=== PATIENT | female | born 2000 | race Caucasian/White ===

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

== ENCOUNTER → 2021-06-07 09:54 | Outpatient (CLI) | payer OTHER, MEDICAID, SELFPAY ==
[2021-06-07 12:04] LABS: Hematocrit 42.8 % (37-47); Hemoglobin 13.8 g/dL (12.0-15.0); Mean Corp Hgb Conc 32.2 g/dL (32-36); Mean Corpuscular Hgb 28.8 pg (27.0-32.0); Mean Corpuscular Volume 89.4 fL (81-99); Mean Platelet Vol. 11.5 fl (6.2-12.0); Platelet Count 169 K/mm3 (150-450); RBC Distribution Width CV 12.9 % (11.6-14.6); RBC Distribution Width SD 42.5 fl (35.1-43.9); Red Blood Count 4.79 M/mm3 (4.2-5.4); White Blood Count 4.8 K/mm3 (4.4-11.0)
== END ==
PROVIDERS: PCP Pediatrics
DX: K62.5 Hemorrhage of anus and rectum (principal)
CPT/HCPCS: 36415; 85027

== ENCOUNTER → 2023-08-27 | Outpatient (CLI) | payer OTHER, SELFPAY ==
--- OUTSIDE RECORDS SUMMARY | 2023-08-27 11:42 | XMS RPT_ITS | CCD ---
Author Name Unknown Address [address] [place] [address] Organization [facility] Care Team Providers Care Manager Desktop Name Role Phone Unknown, Referring Provider Unavailable Unav ailable Unavailable Unavailable PHYSICIAN, NONE Primary Care Physician Unavailab Aamir Beckford Primary Care Provider [phone] STEPHANIE BINGHAM CNM Attending Unavailable STEPHANIE BINGHAM CNM Primary Care Unavailable STEPHANIE BINGHAM CNM Admitting Unavailable AAMIR AZEVEDO Primary Care Unavailable STEPHANIE BINGHAM Referring Unavailable MER BROWN Attending Unavailable Aamir Azevedo Primary Care Provider AAMIR AZEVEDO Primary Care Unavailable AAMIR AZEVEDO Primary Care Unavailable Allergies Allergy Classification Reported Allergen(s) Allergy Type Date of Onset Reaction(s) Facility (5 sources) Cephalexin; Translations: [Keflex] Drug Allergy 3 [facility]en[facility] Work Phone: (5 sources) Ciprofloxacin; Translations: [CIPROFLOXACIN] Drug Allergy 7 [facility] (1 source) Cephalosporins (Antibiotic); Translations: [CEPHALOSPORINS] Propensity to adverse reactions to drug (disorder) [facility] Repository (1 source) Cephalexin; Translations: [CEPHALEXIN] Drug Allergy 3 [facility] Repository Medications Current Medications Medication Drug Class(es) Dates Sig (Normalized) Sig (Original) amoxicillin 875 mg / clavulanate 125 mg oral tablet (2 sources) Penicillin-class Antibacterial Start: 02-04-2023 End: 02-11-2023 take 1 tablet by mouth twice daily amoxicillin-clav ulanic acid (AUGMENTIN) 875-125 mg per tablet Take 1 tablet by mouth twice daily for 7 days. 14 tablet 0 02/04/2023 02/11/2023 Active Completed/Discontinued Medications Medication Drug Class(es) Dates Sig (Normalized) Sig (Original) cephalexin 500 mg oral capsule (1 source) Cephalosporin Antibacterial Start: 11-21-2022 End: 11-21-2022 take 1 capsule by mouth four times daily cephALEXin (KEFLEX) 500 mg capsule Indications: Mastitis, right, acute Take 1 capsule by mouth four times daily for 7 days. 28 capsule 0 11/21/2022 11/21/2022 Discontinued Problems Problem Classification Problem Date Documented Da te Episodic/Chronic Gastrointestinal hemorrhage (2 sources) Gastrointestinal hemorrhage; Translations: [Hemorrhage of rectum and anus] Episodic Nonmalignant breast conditions (2 sources) Acute mastitis; Translations: [Mastitis without abscess] Episodic Other female genital disorders (1 source) Vaginal irritation; Translations: [Other specified noninflammatory disorders of vagina] Episodic Other and delivery including normal (2 sources) 10-02-2021 Episodic Results Test Name Value Interpretation Reference Range Facil ity Vital Signs Date Time Vital Sign Value Performing Clinician Facility 02-04-2023 11:03-0400 Body temperature 98.2 [degF] Mary Bishop APRN.CNP Work Phone: [facility] 02-04-2023 11:03-0400 Body weight 66.59 kg Mary Bishop APRN.CNP Work Phone: [facility] 02-04-2023 11:03-0400 Diastolic blood pressure 78 mm[Hg] Mary Bishop APRN.CNP Work Phone: [facility] 02-04-2023 11:03-0400 Heart rate 106 /min Mary Bishop APRN.CNP Work Phone: [facility] 02-04-2023 11:03-0400 Respiratory rate 18 /min Mary Bishop APRN.CNP Work Phone: [facility] 02-04-2023 11:03-0400 SaO2% (BldA) [Mass fraction] 100 % Mary Bishop APRN.CNP Work Phone: [facility] 02-04-2023 11:03-0400 Systolic blood pressure 123 mm[Hg] Mary Bishop WELD TECHNICIAN.NAIL MAKING MACHINE TENDER Work Phone: [facility] 11-21-2022 18:55-0400 Body temperature 99.5 [degF] Jessica Abbasiisler-Michoacano WELD TECHNICIAN.NAIL MAKING MACHINE TENDER Work Phone: [facility] 11-21-2022 18:55-0400 Body weight 70.31 kg Jessica Praisler-Wood WELD TECHNICIAN.NAIL MAKING MACHINE TENDER Work Phone: [facility] 11-21-2022 18:55-0400 Diastolic blood pressure 70 mm[Hg] Jessica Praisler-Wood WELD TECHNICIAN.NAIL MAKING MACHINE TENDER Work Phone: [facility] 11-21-2022 18:55-0400 Heart rate 114 /min Jessica Praisler-Wood WELD TECHNICIAN.NAIL MAKING MACHINE TENDER Work Phone: [facility] 11-21-2022 18:55-0400 Respiratory rate 16 /min Jessica Praisler-Wood WELD TECHNICIAN.NAIL MAKING MACHINE TENDER Work Phone: [facility] 11-21-2022 18:55-0400 SaO2% (BldA) [Mass fraction] 100 % Jessica Praisler-Wood WELD TECHNICIAN.NAIL MAKING MACHINE TENDER Work Phone: [facility] 11-21-2022 18:55-0400 Systolic blood pressure 134 mm[Hg] Jessica Praisler-Wood WELD TECHNICIAN.NAIL MAKING MACHINE TENDER Work Phone: [facility] 11-25-2021 14:57-0400 Body weight 60.06 kg Yamile Garces WELD TECHNICIAN.NAIL MAKING MACHINE TENDER Work Phone: [facility] 11-25-2021 14:57-0400 Diastolic blood pressure 60 mm[Hg] Yamile Garces WELD TECHNICIAN.NAIL MAKING MACHINE TENDER Work Phone: [facility] 11-25-2021 14:57-0400 Systolic blood pressure 102 mm[Hg] Yamile Garces WELD TECHNICIAN.NAIL MAKING MACHINE TENDER Work Phone: [facility] 10-04-2021 03:30-0400 Diastolic blood pressure 68 mm[Hg] KEREN LOPEZ MD [facility] 10-04-2021 03:30-0400 Heart rate 75 /min KEREN LOPEZ MD [facility] 10-04-2021 03:30-0400 Mean blood pressure 85 mm[Hg] KEREN LOPEZ MD [facility] 10-04-2021 03:30-0400 Respiratory rate 16 /min KEREN LOPEZ MD [facility] 10-04-2021 03:30-0400 Systolic blood pressure 120 mm[Hg] KEREN LOPEZ MD [facility] 10-04-2021 01:35-0400 Body height 165.1 cm KEREN LOPEZ MD [facility] 10-04-2021 01:35-0400 Body temperature 97.88 [degF] KEREN LOPEZ MD [facility] 10-04-2021 01:35-0400 Body weight 58.6 kg KEREN LOPEZ MD [facility] 10-04-2021 01:35-0400 Diastolic blood pressure 65 mm[Hg] KEREN LOPEZ MD [facility] 10-04-2021 01:35-0400 Heart rate 89 /min KEREN LOPEZ MD [facility] 10-04-2021 01:35-0400 Respiratory rate 16 /min KEREN LOPEZ MD [facility] 10-04-2021 01:35-0400 Systolic blood pressure 113 mm[Hg] KEREN LOPEZ MD [facility] 10-02-2021 19:45-0400 Diastolic blood pressure 76 mm[Hg] ASUNCION WHEELER MD [facility] 10-02-2021 19:45-0400 Heart rate 76 /min ASUNCION WHEELER MD [facility] 10-02-2021 19:45-0400 Reason For Taking VItal Signs ASUNCION WHEELER MD [facility] 10-02-2021 19:45-0400 Respiratory rate 18 /min ASUNCION WHEELER MD [facility] 10-02-2021 19:45-0400 Systolic blood pressure 121 mm[Hg] ASUNCION WHEELER MD [facility] 10-02-2021 19:00-0400 Diastolic blood pressure 84 mm[Hg] ASUNCION WHEELER MD [facility] 10-02-2021 19:00-0400 Heart rate 100 /min ASUNCION WHEELER MD [facility] 10-02-2021 19:00-0400 Respiratory rate 20 /min ASUNCION WHEELER MD [facility] 10-02-2021 19:00-0400 Systolic blood pressure 130 mm[Hg] ASUNCION WHEELER MD [facility] 10-02-2021 16:07-0400 Body height 165 cm ASUNCION WHEELER MD [facility] 10-02-2021 16:07-0400 Body temperature 99.14 [degF] ASUNCION WHEELER MD [facility] 10-02-2021 16:07-0400 Body weight 58.5 kg ASUNCION WHEELER MD [facility] 10-02-2021 16:07-0400 Diastolic blood pressure 74 mm[Hg] ASUNCION WHEELER MD [facility] 10-02-2021 16:07-0400 Heart rate 85 /min ASUNCION WHEELER MD [facility] 10-02-2021 16:07-0400 Respiratory rate 16 /min ASUNCION WHEEELR MD [facility] 10-02-2021 16:07-0400 Systolic blood pressure 114 mm[Hg] ASUNCION WHEELER MD [facility] 05-05-2021 15:38-0500 Body height 165.1 cm Referring Provider Unknown [facility] Work Phone: 05-05-2021 15:38-0500 Body mass index (BMI) [Ratio] 20.47 kg/m2 Referring Provider Unknown [facility] Work Phone: 05-05-2021 15:38-0500 Body surface area Derived from formula 1.61 m2 Referring Provider Unknown [facility] El[facility] Shaffer Work Phone: 05-05-2021 15:38-0500 Body temperature 98.4 [degF] Referring Provider Unknown [facility] El[facility] Shaffer Work Phone: 05-05-2021 15:38-0500 Body weight 55.79 kg Referring Provider Unknown [facility] Eliseo Shaffer Work Phone: 05-05-2021 15:38-0500 Diastolic blood pressure 85 mm[Hg] Referring Provider Unknown [facility] Eliseo Shaffer Work Phone: 05-05-2021 15:38-0500 Heart rate 90 /min Referring Provider Unknown [facility] Eliseo Shaffer Work Phone: 05-05-2021 15:38-0500 Respiratory rate 16 /min Referring Provider Unknown [facility] Eliseo Shaffer Work Phone: 05-05-2021 15:38-0500 SaO2% (BldA) [Mass fraction] 98 % Referring Provider Unknown [facility] Eliseo Shaffer Work Phone: 05-05-2021 15:38-0500 Systolic blood pressure 137 mm[Hg] Referring Provider Unknown [facility] Eliseo Shaffer Work Phone: 05-05-2021 15:38-0500 60 1 Referring Provider Unknown [facility] Eliseo Shaffer Work Phone: Encounters Encounter Date Encounter Type Care Provider Facility Start: 02-04-2023 End: 02-04-2023 ambulatory [facility] Facility:[facility] Start: 02-04-2023 End: 02-04-2023 Patient encounter procedure Mary Bishop APRN.CNP Work Phone: [facility] Procedures Date Procedure Procedure Detail Performing Clinician None (qualifier value) BLANCO WHEELER MD Plan of Treatment Date Care Activity Detail Author Start: 02-23-2023 Influenza vaccination [facility] Start: 2022 PAP TESTING PAP TESTING [facility] Start: 06-25-2022 DEPRESSION ASSESSMENT DEPRESSION ASSESSMENT [facility] Start: 02-23-2022 Influenza vaccination INFLUENZA (Season Ended) [facility] Start: 06-09-2021 FUV, Provider: Leia Prieto, Status: Pen, Time: 3:00 PM FUV, Provider: Leia Prieto, Status: Pen, Time: 3:00 PM [facility] Work Phone: Start: 2020 Urine microalbumin profile DTAP,TDAP,TD (1 - Tdap) [facility] Start: 2019 CHLAMYDIA SCREENING (18-24) CHLAMYDIA SCREENING (18-24) [facility] Start: 2019 GC (GONORRHEA) SCREENING (18-24) GC (GONORRHEA) SCREENING (18-24) [facility] Start: 2019 HEPATITIS C SCREENING HEPATITIS C SCREENING [facility] Start: 2019 HIV SCREENING HIV SCREENING [facility] Start: 2017 MENINGOCOCCAL B: Consider based on risk (1 of 2 - Patient Seeks Protection) MENINGOCOCCAL B: Consider based on risk (1 of 2 - Patient Seeks Protection) [facility] Start: 2015 PEDS TO ADULT TRANSITION ANNUAL ASSESSMENT PEDS TO ADULT TRANSITION ANNUAL ASSESSMENT [facility] Start: 2013 Adult depression screening assessment DEPRESSION SCREENING [facility] Start: 2013 PEDS TO ADULT TRANSITION INITIAL DISCUSSION PEDS TO ADULT TRANSITION INITIAL DISCUSSION [facility] Start: 2012 HPV VACCINE (1 - 2-dose series) HPV VACCINE (1 - 2-dose series) [facility] Start: 2011 MENINGOCOCCAL B: Consider based on risk (1 of 2 - Risk Bexsero 2-dose series) MENINGOCOCCAL B: Consider based on risk (1 of 2 - Risk Bexsero 2-dose series) [facility] Start: 2010 HPV VACCINE (1 - 2-dose series) HPV VACCINE (1 - 2-dose series) [facility] Start: 2006 COVID-19 VACCINE (#1) COVID-19 VACCINE (#1) [facility] Start: 02-02-2002 COVID-19 VACCINE (#1) COVID-19 VACCINE (#1) [facility] Start: 2001 HEPATITIS B (1 of 3 - 3-dose series) HEPATITIS B (1 of 3 - 3-dose series) [facility] Microscopic observat ion [Identifier] in Vaginal fluid by Gram stain BACT/TONEY VAG GRAM STAIN Microbiology Routine Vaginal irritation 11/25/2021 3:25 PM EDT [facility] Work Phone: Payers Date Payer Category Payer Unknown 2020 Unknown [employer] PPO [id number] 2020-Present [phone] [address] [place] [address] PPO [id number] 2020 Unknown [id number] 2001 Unknown [id number] 2001 Unknown [id number] Unknown [id number] Social History Date Type Detail Facility Start: 10-02-2021 End: 11-21-2022 Tobacco smoking status Never smoked tobacco (finding) [facility] Start: 2001 Sex Assigned At Female [facility] Start: 06-12-2019 End: 11-21-2022 Tobacco use and exposure Smokeless tobacco non-user [facility] Start: 11-25-2021 End: 02-04-2023 Alcohol intake Lifetime non-drinker (finding) [facility] Start: 11-25-2021 History SDOH Alcohol Frequency 1 [facility] Start: 11-14-2021 End: 11-24-2021 Exposure to SARS-CoV-2 (event) Not sure [facility] Start: 07-23-2022 End: 02-04-2023 History of Social function [facility] Start: 07-23-2022 End: 02-04-2023 Tobacco use panel [facility] National Score (1-10 0), lower number is lower risk 63 [facility] Start: 02-03-2021 Gender identity Identifies as female gender (finding) [facility] Start: 02-03-2021 Sexual orientation Heterosexual (fin ibeth) [facility] Functional Status Date Assessment Result Facility 10-04-2021 Functional Status [facility] 10-02-2021 Functional Status [facility] 10-02-2021 Functional Status [facility] Mental Status Date Assessment Result Facility 10-04-2021 [facility] 10-04-2021 Mental Status [facility] 10-02-[facility] 10-02-2021 Mental Status [facility] Clinical Notes 01-02-2021 to 02-04-2023 Mary Bishop APRN.STEVEN - 02/04/2023 11:05 AM Timmy Gonzales APRN.NAIL MAKING MACHINE TENDER - 11/21/2022 7:11 PM EDTPatient Vera Garces APRN.NAIL MAKING MACHINE TENDER - 11/25/2021 2:54 PM EDTLaboratory Note Date & Type Note Facility 02-04-2023 Note HNO ID: [id number] Author: Mary Bishop APRN.NAIL MAKING MACHINE TENDER Service: ? Author Type: Nurse Practitioner Type: Progress Notes Filed: 02/04/2023 11:16 AM Note Text: Subjective The history is provided by the patient. No account classification clerk was used. PAOLA Rosen is a 22 year old female who presents today for CC of right breast pain, red streaking, low grade temperature, body aches started yesterday. She has been using warm compresses, massage without relief. She had mastitis 2 weeks ago Social History Tobacco Use Smoking status: Never Smokeless tobacco: Never Vaping Use Vaping Use: Never used Substance Use Topics Alcohol use: Never Drug use: Never PAST MEDICAL HISTORY Diagnosis Date NEGATIVE MEDICAL HISTORY I have confirmed and edited as necessary, the [facility] Review of Systems Constitutional: Negative for chills and fever. Musculoskeletal: Negative for joint pain and myalgias. Skin: Negative for itching and rash. All other systems reviewed and are negative. Objective BP 123/78 Pulse 106 Temp 36.8 ?C (98.2 ?F) Resp 18 Wt 66.6 kg (146 lb 12.8 oz) LMP 11/05/2021 SpO2 100% Physical Exam Vitals and nursing note reviewed. Pulmonary: Effort: Pulmonary effort is normal. Chest: Chest wall: Tenderness present. Comments: Area of red streaking tenderness noted. Skin: General: Skin is warm and dry. Neurological: Mental Status: She is alert and oriented to person, place, and time. Psychiatric: Mood and Affect: Affect normal. ASSESSMENT/PLAN: 1. Mastitis, right, acute - ICD9: 611.0, ICD10: N61.0 Augmentin as ordered Massage, warm compresses Follow up with PCP/MMI TEACHER prn Diagnosis and treatment plan were discussed and questions were answered to the patient's satisfaction. Pt acknowledged understanding of concepts and follow up plan. Specific signs and symptoms that would indicate the need for higher level of care were discussed in detail warranting prompt ER evaluation. Mary Bishop APRN.[facility] 02-04-2023 History of Present illness Narrative Images from the original note were not included. Subjective The history is provided by the patient. No account classification clerk was used. HPI Rafael Rosen is a 22 year old female who presents today for CC of right breast pain, red streaking, low grade temperature, body aches started yesterday. She has been using warm compresses, massage without relief. She had mastitis 2 weeks ago Social History Tobacco Use Smoking status: Never Smokeless tobacco: Never Vaping Use Vaping Use: Never used Substance Use Topics Alcohol use: Never Drug use: Never PAST MEDICAL HISTORY Diagnosis Date NEGATIVE MEDICAL HISTORY I have confirmed and edited as necessary, the [facility] Review of Systems Constitutional: Negative for chills and fever. Musculoskeletal: Negative for joint pain and myalgias. Skin: Negative for itching and rash. All other systems reviewed and are negative. Objective BP 123/78 Pulse 106 Temp 36.8 C (98.2 F) Resp 18 Wt 66.6 kg (146 lb 12.8 oz) LMP 11/05/2021 SpO2 100% Physical Exam Vitals and nursing note reviewed. Pulmonary: Effort: Pulmonary effort is normal. Chest: Chest wall: Tenderness present. Comments: Area of red streaking tenderness noted. Skin: General: Skin is warm and dry. Neurological: Mental Status: She is alert and oriented to person, place, and time. Psychiatric: Mood and Affect: Affect normal. ASSESSMENT/PLAN: 1. Mastitis, right, acute - ICD9: 611.0, ICD10: N61.0 Augmentin as ordered Massage, warm compresses Follow up with PCP/MMI TEACHER prn Diagnosis and treatment plan were discussed and questions were answered to the patient's satisfaction. Pt acknowledged understanding of concepts and follow up plan. Specific signs and symptoms that would indicate the need for higher level of care were discussed in detail warranting prompt ER evaluation. Mary Bishop APRN.NAIL MAKING MACHINE TENDER documented in this encounter [facility] 11-21-2022 Note HNO ID: [id number] Author: Jessica Gonzales APRN.STEVEN Service: ? Author Type: Nurse Practitioner Type: Progress Notes Filed: 11/21/2022 7:18 PM Note Text: Subjective HPI Rafael Rosen is a 22 year old female who presents with right breast tenderness and swelling and erythema. She noticed this yesterday. She thought it was just a plugged duct so was massaging it but it has gotten worse. The area is warm to touch. Last night she had some chills and her temperature at home was 99.9 degrees F. She took Advil at home. She is nursing a 6 week old infant. Review of Systems Constitutional: Positive for chills. Negative for fever. Respiratory: Negative. Cardiovascular: Negative. Gastrointestinal: Negative for nausea and vomiting. Musculoskeletal: Negative for joint pain and myalgias. Skin: Negative for itching and rash. Neurological: Negative for headaches. BP 134/70 Pulse 114 Temp 37.5 ?C (99.5 ?F) Resp 16 Wt 70.3 kg (155 lb) LMP 11/05/2021 SpO2 100% PAST MEDICAL HISTORY Diagnosis Date NEGATIVE MEDICAL HISTORY PAST SURGICAL HISTORY Procedure Laterality Date NONE ALLERGIES Cephalexin and Ciprofloxacin MEDICATIONS magnesium oxide (MAG-OX) 400 mg (241.3 mg magnesium) tablet Take 1 tablet by mouth once daily. ascorbic acid (VITAMIN C ORAL) Take by mouth. amoxicillin-clavulanic acid (AUGMENTIN) 875-125 mg per tablet Take 1 tablet by mouth twice daily for 7 days. Ascorbic Acid 1,000 mg tablet Take 1 tablet by mouth once daily. (Patient not taking: Reported on 02/03/2021 ) omega-3 acid ethyl esters (LOVAZA) 1 gram capsule Take 1 capsule by mouth once daily. (Patient not taking: Reported on 11/21/2022) No family history on file. Social History Tobacco Use Smoking status: Never Smokeless tobacco: Never Vaping Use Vaping Use: Never used Substance Use Topics Alcohol use: Never Drug use: Never Objective Physical Exam Vitals and nursing note reviewed. Constitutional: General: She is not in acute distress. Appearance: Normal appearance. She is not ill-appearing. Cardiovascular: Rate and Rhythm: Normal rate. Pulmonary: Effort: Pulmonary effort is normal. Chest: Lymphadenopathy: Upper Body: Right upper body: No supraclavicular or axillary adenopathy. Left upper body: No supraclavicular or axillary adenopathy. Skin: General: Skin is warm and dry. Findings: Erythema present. No rash. Neurological: Mental Status: She is alert. ASSESSMENT/PLAN: 1. Mastitis, right, acute - ICD9: 611.0, ICD10: N61.0 - patient states she is allergic to cephalexin. No known sensitivity to PCN. - AMOXICILLIN 875 MG-POTASSIUM CLAVULANATE 125 MG TABLET - massage area several times daily - continue . - cold or warm compresses may bring comfort. - you may take tylenol or ibuprofen for pain. - Follow-up with your PCP in 3-5 days if symptoms have not improved or sooner if symptoms worsen - Discussed red flags and need for immediate medical evaluation if any occur. - Discussed supportive care treatment with fluids, rest and analgesia. - Discussed expected course of illness Jessica Gonzales APRN.NAIL MAKING MACHINE TENDER [facility] 11-21-2022 History of Present illness Narrative Images from the original note were not included. Subjective HPI Rafael Rosen is a 22 year old female who presents with right breast tenderness and swelling and erythema. She noticed this yesterday. She thought it was just a plugged duct so was massaging it but it has gotten worse. The area is warm to touch. Last night she had some chills and her temperature at home was 99.9 degrees F. She took Advil at home. She is nursing a 6 week old infant. Review of Systems Constitutional: Positive for chills. Negative for fever. Respiratory: Negative. Cardiovascular: Negative. Gastrointestinal: Negative for nausea and vomiting. Musculoskeletal: Negative for joint pain and myalgias. Skin: Negative for itching and rash. Neurological: Negative for headaches. BP 134/70 Pulse 114 Temp 37.5 C (99.5 F) Resp 16 Wt 70.3 kg (155 lb) LMP 11/05/2021 SpO2 100% PAST MEDICAL HISTORY Diagnosis Date NEGATIVE MEDICAL HISTORY PAST SURGICAL HISTORY Procedure Laterality Date NONE ALLERGIES Cephalexin and Ciprofloxacin MEDICATIONS magnesium oxide (MAG-OX) 400 mg (241.3 mg magnesium) tablet Take 1 tablet by mouth once daily. ascorbic acid (VITAMIN C ORAL) Take by mouth. amoxicillin-clavulanic acid (AUGMENTIN) 875-125 mg per tablet Take 1 tablet by mouth twice daily for 7 days. Ascorbic Acid 1,000 mg tablet Take 1 tablet by mouth once daily. (Patient not taking: Reported on 02/03/2021 ) omega-3 acid ethyl esters (LOVAZA) 1 gram capsule Take 1 capsule by mouth once daily. (Patient not taking: Reported on 11/21/2022) No family history on file. Social History Tobacco Use Smoking status: Never Smokeless tobacco: Never Vaping Use Vaping Use: Never used Substance Use Topics Alcohol use: Never Drug use: Never Objective Physical Exam Vitals and nursing note reviewed. Constitutional: General: She is not in acute distress. Appearance: Normal appearance. She is not ill-appearing. Cardiovascular: Rate and Rhythm: Normal rate. Pulmonary: Effort: Pulmonary effort is normal. Chest: Lymphadenopathy: Upper Body: Right upper body: No supraclavicular or axillary adenopathy. Left upper body: No supraclavicular or axillary adenopathy. Skin: General: Skin is warm and dry. Findings: Erythema present. No rash. Neurological: Mental Status: She is alert. ASSESSMENT/PLAN: 1. Mastitis, right, acute - ICD9: 611.0, ICD10: N61.0 - patient states she is allergic to cephalexin. No known sensitivity to PCN. - AMOXICILLIN 875 MG-POTASSIUM CLAVULANATE 125 MG TABLET - massage area several times daily - continue . - cold or warm compresses may bring comfort. - you may take tylenol or ibuprofen for pain. - Follow-up with your PCP in 3-5 days if symptoms have not improved or sooner if symptoms worsen - Discussed red flags and need for immediate medical evaluation if any occur. - Discussed supportive care treatment with fluids, rest and analgesia. - Discussed expected course of illness Jessica Gonzales APRN.CNP documented in this encounter [facility] 11-21-2022 Instructions Jessica Gonzales APRN.CNP - 11/21/2022 7:05 PM EDT ASSESSMENT/PLAN: 1. Mastitis, right, acute - ICD9: 611.0, ICD10: N61.0 - patient states she is allergic to cephalexin. No known sensitivity to PCN. - AMOXICILLIN 875 MG-POTASSIUM CLAVULANATE 125 MG TABLET - massage area several times daily - continue . - cold or warm compresses may bring comfort. - you may take tylenol or ibuprofen for pain. - Follow-up with your PCP in 3-5 days if symptoms have not improved or sooner if symptoms worsen - Discussed red flags and need for immediate medical evaluation if any occur. - Discussed supportive care treatment with fluids, rest and analgesia. - Discussed expected course of illness Jessica Gonzales APRN.CNP documented in this encounter [facility] 11-25-2021 History of Present illness Narrative Rafael Rosen is a 21 year old female who presents for problem visit tissue at vaginal opening HPI: Noticed pink tissue in vaginal opening a week ago which she has not noticed before. Thought she had a yeast infection so she treated with Monistat 3. After treatment completed, she noticed the tissue when she looked with a mirror. No pain or vaginal discharge but does have continued mild vaginal irritation. Is sexually active with one male partner of 4 years, unprotected. Contraception - natural family planing but would be happy if occurs. 12 week loss earlier this year. OB History No obstetric history on file. Human Resources Trainer History LMP: 11/05/2021, Having periods Age at Menarche: Age at First : Age at Menopause: Human Resources Trainer History Comments: Sexual Activity: Yes; Male Contraception: Rhythm PAST MEDICAL HISTORY Diagnosis Date NEGATIVE MEDICAL HISTORY PAST SURGICAL HISTORY Procedure Laterality Date NONE History reviewed. No pertinent family history. Social History Tobacco Use Smoking status: Never Smoker Smokeless tobacco: Never Used Vaping Use Vaping Use: Never used Substance Use Topics Alcohol use: Never Drug use: Never Current Outpatient Medications Medication Sig omega-3 acid ethyl esters (LOVAZA) 1 gram capsule Take 1 capsule by mouth once daily. magnesium oxide (MAGOX) 400 mg (241.3 mg magnesium) tablet Take 1 tablet by mouth once daily. Ascorbic Acid 1,000 mg tablet Take 1 tablet by mouth once daily. (Patient not taking: Reported on 02/03/2021 ) No current facility-administered medications for this visit. Allergies As of Date: 11/25/2021 Allergen Noted Reaction CIPROFLOXACIN 07/05/2016 Hives Fully Assessed 11/25/2021 REVIEW OF SYSTEMS Abdomen: No bloating, early satiety, indigestion, or increased flatulence. No abdominal pain, nausea, vomiting, diarrhea, or constipation. Bladder: No dysuria, gross hematuria, urinary frequency, urinary urgency, or incontinence. Allergies and current medication updated:Yes EXAM: BP 102/60 Wt 132 lb 6.4 oz (60.1kg) LMP 11/05/2021 GENERAL: pleasant, female in no apparent distress CHEST: Normal inspiratory effort ABDOMEN: soft, non-tender and no masses PELVIC: external genitalia normal, normal Bartholin's glands, urethra, [place]'s glands, no vulvar lesions, no cervical lesions, good vaginal support, physiologic discharge present, normal appearing perineal body and perianal region. Vaginal martinez mildly erythematous BIMANUAL: uterus normal size, shape and consistency, no adnexal masses and non-tender NEURO: alert and oriented x3,exam grossly non-focal ASSESSMENT/PLAN: 1. Vaginal irritation - ICD9: 623.9, ICD10: N89.8 (primary diagnosis) - BACT/TONEY VAG GRAM STAIN 2. Normal vaginal exam - ICD9: V72.31, ICD10: Z01.419 - Normal vaginal on exam. Area of concern per pt when shown with mirror it to irregular skin at introitus. 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 Gayathri relieved that all looks normal. Will notify of results. Follow- up as needed. Yamile Garces APRN.STEVEN I spent a total of 20 minutes on the date of the service which included preparing to see the patient, [id number] patient care, completing clinical documentation, obtaining and/or reviewing separately obtained history, performing a medically appropriate examination, counseling and educating the patient/family/caregiver and ordering medications, tests, or procedures. documented in this encounter [facility] 10-04-2021 Hospital Discharge instructions Patient Education 10/04/2021 03:22:02 Miscarriage, Incomplete Incomplete Miscarriage Today's exams show your has ended suddenly. This can be emotionally difficult. There is little that can be done to change the way you feel. But understand that miscarriages are common. About 1 or 2 out of every [address] Some even end before you know you are . This happens for a number of reasons, and usually the cause is never known. It s important you know that it is not your fault. It didn t happen because you did anything wrong. Having sex or exercising does not cause a miscarriage. These activities are usually safe unless you have pain or bleeding or your healthcare provider tells you to stop. Even minor falls won t cause a miscarriage. Miscarriages happen because things were not developing as they were supposed to. No medicine can prevent a miscarriage. After you have recovered, you should still be able to get again. But before trying, talk with your healthcare provider. It appears that your miscarriage is not yet complete. Some tissue from the is in the uterus. You will probably have more cramping and bleeding for the next few days as the tissue leaves your uterus. Usually all of the tissue will pass out by itself. But sometimes tissue remains. In that case, it must be removed to stop bleeding and prevent infection. Home care Follow these tips to take of yourself at home: You can go back to your normal activities if you don t have heavy bleeding or pain. You may have some cramping and bleeding, but it shouldn t be severe. Until the bleeding stops completely and to prevent infection: Don t have sex until your healthcare provider says it s OK. Use sanitary napkins instead of tampons. Don t douche. Having a miscarriage can be very difficult emotionally. It is natural to feel sadness or grief. It may help to talk about your feelings with family and friends, or with a counselor. Follow-up care You may pass tissue. If you see anything, it may appear as a 1-inch or larger piece of horne or pink flesh. If tissue has not passed from your vagina within the next 5 days, you need to see your healthcare provider for another exam. To prevent infection in the uterus, your provider might need to take out the tissue by surgery. Or you may be given medicine to take at home to help your body expel the rest of the tissue. If you had an ultrasound, a radiologist will review it. You will be told of any new findings that may affect your care. Call 911 Call 911 if you have: Severe pain and very heavy bleeding Severe lightheadedness, passing out, or fainting Rapid heart rate Difficulty breathing Confusion or difficulty waking up When to seek medical advice Call your healthcare provider right away if any of these occur: Heavy bleeding. This means soaking 1 new pad an hour over 3 hours. Foul-smelling vaginal discharge Fever of 100.4 F (38 C) or higher, or as directed by your healthcare provider Pain in your lower belly (abdomen) that gets worse Weakness or dizziness [phone] [employer]. [address] [place] [address]. All rights reserved. This information is not intended as a substitute for professional medical care. Always follow your healthcare professional's instructions. Follow Up Care 10/04/2021 01:24:16 With:CEM CALHOUN MD Address: When:2-4 days [facility] 10-03-2021 Evaluation + Plan note Future Scheduled TestshCG, quantitative () 10/03/21 [facility] 10-02-2021 Hospital Discharge instructions Patient Education 10/02/2021 18:42:35 Understanding Miscarriage: During a Miscarriage Understanding Miscarriage: During a Miscarriage No two miscarriages are alike. Because of this, your healthcare provider will talk with you about the most appropriate treatment for you. If you re in good health and early in the , your body may expel all the tissue on its own. If your body doesn t expel all the tissue, your healthcare provider may recommend treatment to prevent infection and severe bleeding (hemorrhaging). What happens during miscarriage Some miscarriages happen without any signs or symptoms. Most miscarriages, however, start with bleeding and cramping, which may increase over time. The cramps may get very strong. This is normal when a miscarriage is happening. Cramping widens the passage (cervix) that tissue from the uterus must pass through to leave your body. Your healthcare provider may ask you for a sample of the tissue for lab testing. This is to make sure that the cells being shed from your body are normal. Diagnosis To confirm the miscarriage, your healthcare provider will do a pelvic exam. Your healthcare provider might order a blood test to measure the levels of a hormone (hCG). He or she may also have you get an ultrasound test to find out if all of the tissue has passed from the uterus. If a miscarriage happens very early in the , an ultrasound is not needed. Treatment If any tissue remains in the uterus, your healthcare provider may suggest the following measures depending on your particular situation: Medicine. This is prescribed for you to take at home. The medicine causes the uterus to expel any remaining tissue. Take the medicine exactly as directed. Dilation and curettage (D & C). This procedure is done in your healthcare provider s office or at the hospital. You are given medicine to prevent pain or to allow you to relax or sleep during the procedure. The healthcare provider uses instruments to widen the cervix (dilate). Tissue and blood that line the uterus are then removed (curettage). Be sure you talk to your healthcare provider about the risks and benefits of these treatments. If you have Rh-negative blood If your blood is Rh negative, you may need treatment with Rho(D) immune globulin. This injection prevents substances in your blood from attacking the baby s blood during a future . Your healthcare provider can tell you more. Follow-up care Keep all follow-up appointments. These are needed to make sure that you are healing well. During these visits, mention if you re feeling very sad or depressed. Your healthcare provider can suggest counseling or other resources to help you. When to seek medical care Contact your healthcare provider if you have any of the following: Severe pain in the stomach, pelvis, or low back Vaginal discharge that has a bad odor Bleeding that soaks a new sanitary pad each hour Fever of 100.4 F (38 C) or higher, or as directed by your healthcare provider [phone] [employer]. [address] [place] [address]. All rights reserved. This information is not intended as a substitute for professional medical care. Always follow your healthcare professional's instructions. 10/02/2021 18:42:34 Possible Miscarriage (Threatened ) Possible Miscarriage (Threatened ) You may be having a miscarriage. Common signs of a miscarriage are pain and bleeding. A small amount of bleeding can be normal during the first 3 months of . Often the pain and bleeding stop, and you have a normal and baby. But heavy bleeding or severe cramping can be an early sign of miscarriage. A miscarriage means an unexpected loss of your . At this time, your healthcare provider doesn t know whether you will have a miscarriage, or if things will clear up and your will continue normally. This can be emotionally difficult. There is little that can be done to change the way you feel. But understand that miscarriages are common. About 1 or 2 out of every [address] Some even end before you know you are . This happens for a number of reasons, and usually the cause is never known. It s important you know that it is not your fault. It didn t happen because you did anything wrong. Having sex or exercising does not cause a miscarriage. These activities are usually safe unless you have pain or bleeding or your doctor tells you to stop. Even minor falls won t cause a miscarriage. Miscarriages happen because things were not developing as they were supposed to. No medicine can prevent a miscarriage. Again, understand that things are uncertain right now. You may still have some bleeding. This may be light spotting or like a period, and you may pass some tissue. You may have some cramping. This is why follow-up care is important. Home care To improve the chance of keeping your , you should take these steps: Rest in bed until the pain and bleeding stop. Don t have sex until your healthcare provider says it s OK. Use sanitary napkins instead of tampons. Don t douche. Don t take aspirin, ibuprofen, or naproxen. Don t have alcoholic or caffeinated beverages or smoke. Follow-up care Make an appointment with your doctor within the next week, or as directed. If you had an ultrasound, a radiologist will review it. You will be told of any new findings that may affect your care. Call 911 Call 911 if you have: Severe pain and very heavy bleeding Severe lightheadedness, passing out, or fainting Rapid heart rate Difficulty breathing Confusion or difficulty waking up When to seek medical advice Call your healthcare provider right away if any of these occur: Vaginal bleeding or pain that lasts for more than 3 days Heavy bleeding. This means soaking 1 new pad an hour over 3 hours. Fever of 100.4 F (38 C) or higher, or as directed by your healthcare provider Pain in your lower belly (abdomen) that gets worse Weakness or dizziness Passage of anything that resembles tissue. This would be pink or grayish membrane or solid material. Save the tissue in a clean container and bring it to your provider. [phone] [employer]. [address] [place] [address]. All rights reserved. This information is not intended as a substitute for professional medical care. Always follow your healthcare professional's instructions. 10/02/2021 18:01:53 Rh0 [D] Immune Globulin injection Rh0 [D] Immune Globulin injection What is this medicine? RhO [D] IMMUNE GLOBULIN (i MYOON MARINA eli) is used to treat idiopathic thrombocytopenic purpura (ITP). This medicine is used in RhO negative mothers who are with a RhO positive child. It is also used after a transfusion of RhO positive blood into a RhO negative person. How should I use this medicine? This medicine is for injection into a muscle or into a vein. It is given by a health wound care physician in a hospital or clinic setting. Talk to your platform operations director regarding the use of this medicine in children. This medicine is not approved for use in children. What side effects may I notice from receiving this medicine? Side effects that you should report to your doctor or health wound care physician as soon as possible: allergic reactions like skin rash, itching or hives, swelling of the face, lips, or tongue breathing problems chest pain or tightness yellowing of the eyes or skin Side effects that usually do not require medical attention (report to your doctor or health wound care physician if they continue or are bothersome): fever pain and tenderness at site where injected What may interact with this medicine? live virus vaccines, like measles, mumps, or rubella What if I miss a dose? It is important not to miss your dose. Call your doctor or health wound care physician if you are unable to keep an appointment. Where should I keep my medicine? This drug is given in a hospital or clinic and will not be stored at home. What should I tell my health care provider before I take this medicine? They need to know if you have any of these conditions: bleeding disorders low levels of immunoglobulin A in the body no spleen an unusual or allergic reaction to human immune globulin, other medicines, foods, dyes, or preservatives or trying to get breast-feeding What should I watch for while using this medicine? This medicine is made from human blood. It may be possible to pass an infection in this medicine. Talk to your doctor about the risks and benefits of this medicine. This medicine may interfere with live virus vaccines. Before you get live virus vaccines tell your health wound care physician if you have received this medicine within the past 3 months. NOTE:This sheet is a summary. It may not cover all possible information. If you have questions about this medicine, talk to your doctor, pharmacist, or health care provider. Copyright 2019 [employer] 10/02/2021 18:01:52 If You Are Rh Negative If You Are Rh Negative A Rho(D) immune globulin injection protects against Rh disease in this and future pregnancies. If you re Rh negative, ask your healthcare provider about getting treated with Rho(D) immune globulin. Even if you miscarry or don t deliver the baby, you will still need treatment. The health of any baby you have in the future depends on it. When are you treated? If your blood has not formed Rh antibodies, you ll be treated during week 28 of your . You also may be treated any time there s a chance that blood has mixed with yours. For example, this might be after an amniocentesis, a test. Or it might be if you have vaginal bleeding earlier than 28 weeks. Treatment is an injection of a medicine called Rho(D) immune globulin. Rho(D) immune globulin stops Rh antibodies from forming. It won t harm you or the fetus. After you give , your baby s blood will be tested. If it s Rh positive, you ll be given Rho(D) immune globulin again within 3 days. If it s Rh negative, you won t need Rho(D) immune globulin until your next . Preventing future problems Your chance of forming Rh antibodies increases with each . This is true even for an ectopic (the fertilized egg is outside the uterus). It is also true for pregnancies that end in miscarriage or . In these cases, you will most likely get a Rho(D) immune globulin injection. This is because your body can make Rh antibodies even if you don t deliver a baby. Rh antibodies can cause problems in future pregnancies. If you have Rh antibodies If antibodies have already formed (sensitization), Rho(D) immune globulin can t protect the fetus. You and the fetus will need special care during . Your healthcare provider will explain the details to you. [phone] [employer]. [address] [place] [address]. All rights reserved. This information is not intended as a substitute for professional medical care. Always follow your healthcare professional's instructions. Follow Up Care 10/02/2021 16:03:54 With:CEM CALHOUN Address: [address] [place] [address] [place] [address]- [phone] Business (1) When:2-4 days Comments:Follow-up as scheduledReturn to ED if symptoms worsenIncrease fluids. Pelvic rest [facility] 01-06-2021 History of Present illness Narrative 20-year-old patient who is self-referred for a history of rectal bleeding. She is accompanied by her [id number] for the visit. She has noticed some rectal bleeding x1/ moth for the past 4 months. Last episode was last week, bright red blood. Pt. reports daily bowel movements by taking a herbal pill with senna. She denies starining with bowel movements. She has tried taking Miralax once daily 1 1/2h years ago, also did a Miralax clean-out x2. It did not help- after the second time. Rare heartburn with taking herbal laxative (contains cayenne pepper as well as senna). She has also taken Dulcolax which caused abdominal cramping. She has tried removing gluten and dairy from her diet.Pt. 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 She denies any FamHx of colon ca, IBD, celiac disease.Upper Gastrointestinal: no difficulty swallowing.Lower Gastrointestinal: constipation.Gastrointestinal Bleeding: bright red blood per rectum, but no melena/black stool.Symptom History:Modifying Factors:Makes Better: cannot identify.Makes Worse: cannot identify.Associated Symptoms: [id number] ll 6 [facility] Work Phone: 01-02-2021 History of Present illness Narrative 20-year-old patient who is self-referred for a history of rectal bleeding. She is accompanied by her [id number] for the visit. She has noticed some rectal bleeding x1/ moth for the past 4 months. Last episode was last week, bright red blood. Pt. reports daily bowel movements by taking a herbal pill with senna. She denies starining with bowel movements. She has tried taking Miralax once daily 1 1/2h years ago, also did a Miralax clean-out x2. It did not help- after the second time. Rare heartburn with taking herbal laxative (contains cayenne pepper as well as senna). She has also taken Dulcolax which caused abdominal cramping. She has tried removing gluten and dairy from her diet.Pt. 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 She denies any FamHx of colon ca, IBD, celiac disease.Upper Gastrointestinal: no difficulty swallowing.Lower Gastrointestinal: constipation.Gastrointestinal Bleeding: bright red blood per rectum, but no melena/black stool.Symptom History:Modifying Factors:Makes Better: cannot identify.Makes Worse: cannot identify.Associated Symptoms: [facility] Eliseo Shaffer Work Phone: Evaluation + Plan note No data available for this section [facility] Mastitis, right, acute- Primary Inflammatory disease of breast [facility] Diagnosis Mastitis, right, acute- Primary Inflammatory disease of breast [facility] No data available for this section [facility] Chief Complaint constipation x 12 months with occasional rectal bleeding, which started 4-5 months ago. Mostly juststreaks of blood but sometimes larger amounts bright red in color. Pt takes an herbal supplement daily for constipation. Slight decrease in appetite with weight loss of 5 lbs in past few months. Novomiting. Intermittent abd pain 2/10. Pt has not had any past stool samples sent and has not had a colonoscopy.constipation x 12 months with occasional rectal bleeding, which started 4-5 months ago. Mostly juststreaks of blood but sometimes larger amounts bright red in color. Pt takes an herbal supplement daily for constipation. Slight decrease in appetite with weight loss of 5 lbs in past few months. Novomiting. Intermittent abd pain 2/10. Pt has not had any past stool samples sent and has not had a colonoscopy. Summary Purpose Family History No Family History Records FoundNo Family History Records FoundNo Family History Records FoundNo Family History Records FoundNo Family History Records FoundNo Family History Records Found Advance Directives No Advanced Directives Records FoundNo Advanced Directives Records FoundNo Advanced Directives Records FoundNo Advanced Directives Records FoundNo Advanced Directives Records FoundNo Advanced Directives Records Found Additional Source Comments INFORMATION SOURCE (unrecogn ized section and content) DATE CREATED AUTHOR AUTHOR'S ORGANIZ ATION 10/05/2021 [facility] ([place]) DATE CREATED AUTHOR AUTHOR'S ORGANIZ ATION 03/27/2022 [facility] DATE CREATED AUTHOR AUTHOR'S ORGANIZ ATION 05/17/2022 [facility] [facility] DATE CREATED AUTHOR AUTHOR'S ORGANIZ ATION 08/01/2022 [facility] DATE CREATED AUTHOR AUTHOR'S ORGANIZ ATION 02/04/2023 [facility] Source Comments (unrecognize d section and content) In the event this informatio n is protected by the Federal Confidentiality of Alcohol and Drug Abuse Patient Records regulations: The Federal rules restrict any use of the information to criminally investigate or prosecute any alcohol or drug abuse patient.[facility] the event this information is protected by the Federal Confidentiality of Alcohol and Drug Abuse Patient Records regulations: The Federal rules restrict any use of the information to criminally investigate or prosecute any alcohol or drug abuse patient.[facility] the event this information is protected by the Federal Confidentiality of Alcohol and Drug Abuse Patient Records regulations: The Federal rules restrict any use of the information to criminally investigate or prosecute any alcohol or drug abuse patient.[facility] Reason for Visit (unrecogniz ed section and content) Specialty Diagnoses / Procedures Referred By Contac t Referred To Contact Gynecology / ANIMAL NUTRITION CONSULTANT Diagnoses Superficial dyspareunia urethra concern Procedures OFFICE/OUTPATIENT ESTABLISHED HIGH MDM 40-54 MIN EST WHI PATIENT Self Yamile Garces, WELD TECHNICIAN.NAIL MAKING MACHINE TENDER [address] [place] [address] Referral ID Status Reason Start Date Expiration Date Visits Re quested Visits Authorized [id number] Closed 11/24/2021 06/24/2022 1 1 Reason Comments Breast Problem pain in right breast x last night Specialty Diagnoses / Procedures Referred By Spenser t Referred To Contact [facility] / [facility] Diagnoses Possible mastitis, having pain x1 day Procedures NEW SAME DAY Self [facility] [address] [place] [address] Referral ID Status Reason Start Date Expiration Date V isits Requested Visits Authorized [id number] Outside PCP 11/21/2022 01/20/2023 1 1 Reason Comments Breast Problem R side possible mast itis x2 days Care Teams (unrecognized sec tion and content) Manager Desktop Relationship Specialty Start Date End Date Aamir Azevedo [address] [place] [address] PCP - General Pediatrics 06/12/19 FOR RECORDS PERTAINING TO PATIENTS WHO ARE OR HAVE BEEN ENROLLED IN A CHEMICAL DEPENDENCY/SUBSTANCEABUSE PROGRAM, SOME INFORMATION MAY BE OMITTED. This clinical summary was aggregated from multiple sources. Caution should be exercised in using it in the provision of clinical care. This summary normalizes information from multiple sources, and as a consequence, information in this document may materially change the coding, format and clinical context of patient data. In addition, data may be omitted in some cases. CLINICAL DECISIONS SHOULD BE BASED ON THE PRIMARY CLINICAL RECORDS. [facility] [employer] [facility]. provides no warranty or guarantee of the accuracy or completeness of information in this document.
[2023-08-27 12:01] LABS: hCG Titer Quant., Serum 68 mIU/mL (1-3)
== END | disposition home or self-care (01) ==
PROVIDERS: PCP Pediatrics; Referring Provider Registered Nurse; Visit Provider Registered Nurse
DX: O09.299 Supervision of pregnancy with other poor reproductive or obstetric history, unspecified trimester (principal); Z3A.00 Weeks of gestation of pregnancy not specified
CPT/HCPCS: 36415; 84702

== ENCOUNTER → 2023-08-29 | Outpatient (CLI) | payer OTHER, SELFPAY ==
[2023-08-29 13:02] LABS: hCG Titer Quant., Serum 186 mIU/mL (1-3)
== END | disposition home or self-care (01) ==
PROVIDERS: PCP Pediatrics; Referring Provider Registered Nurse; Visit Provider Registered Nurse
DX: O09.299 Supervision of pregnancy with other poor reproductive or obstetric history, unspecified trimester (principal); Z3A.00 Weeks of gestation of pregnancy not specified
CPT/HCPCS: 36415; 84702

== ENCOUNTER → 2023-08-30 | Outpatient (CLI) | payer OTHER, SELFPAY ==
[2023-08-30 16:31] LABS: Progesterone Level 8.49 ng/mL (See Comment)
== END | disposition home or self-care (01) ==
LOC: PAVLAB 15:36
PROVIDERS: PCP Pediatrics; Referring Provider Registered Nurse; Visit Provider Registered Nurse
DX: O09.299 Supervision of pregnancy with other poor reproductive or obstetric history, unspecified trimester (principal); Z3A.00 Weeks of gestation of pregnancy not specified
CPT/HCPCS: 36415; 84144

== ENCOUNTER → 2023-09-03 | Outpatient (CLI) | payer OTHER, SELFPAY ==
[2023-09-03 14:07] LABS: hCG Titer Quant., Serum 1472 mIU/mL (1-3)
[2023-09-03 14:46] LABS: Progesterone Level 10.23 ng/mL (See Comment)
--- OUTSIDE RECORDS SUMMARY | 2023-09-03 17:27 | XMS RPT_ITS | CCD ---
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 Attendant Name Role Phone Unknown, Referring Provider Unavailable [...] sources) Cephalexin; Translations: [Keflex] Drug Allergy 3 [facility] Eliseo Keenan MD Inc Work Phone: (5 sources) Ciprofloxacin; Translations: [CIPROFLOXACIN] Drug Allergy 7 [facility] (1 source) Cephalosporins (Antibiotic); Translations: [CEPHALOSPORINS] Propensity to adverse reactions to drug (disorder) [facility] Repository (1 source) Cephalexin; Translations: [CEPHALEXIN] Drug Allergy 3 [facility] Repository Medications Current Medications Medication Drug [...] 98.2 [degF] Mary Bishop APRN.CNP Work Phone: [facility] 02-04-2023 11:03-0400 Body weight 66.59 kg Mary Bishop APRN.CNP Work Phone: [facility] 02-04-2023 11:03-0400 Diastolic blood pressure 78 mm[Hg] Mary Bishop APRN.CNP Work Phone: [facility] 02-04-2023 11:03-0400 Heart rate 106 /min Mary Bishop APRN.CNP Work Phone: [facility] 02-04-2023 11:03-0400 Respiratory rate 18 /min Mary Bishop APRN.CNP Work Phone: [facility] 02-04-2023 11:03-0400 SaO2% (BldA) [Mass fraction] 100 % Mary Bishop APRN.CNP Work Phone: [facility] 02-04-2023 11:03-0400 Systolic blood pressure 123 mm[Hg] Mary Bishop PALAEONTOLOGIST.YARN SPINNER Work Phone: [facility] 11-21-2022 18:55-0400 Body temperature 99.5 [degF] Jessica Abbasiisler-Michoacano PALAEONTOLOGIST.YARN SPINNER Work Phone: [facility] 11-21-2022 18:55-0400 Body weight 70.31 kg Jessica Praisler-Wood PALAEONTOLOGIST.YARN SPINNER Work Phone: [facility] 11-21-2022 18:55-0400 Diastolic blood pressure 70 mm[Hg] Jessica Praisler-Wood PALAEONTOLOGIST.YARN SPINNER Work Phone: [facility] 11-21-2022 18:55-0400 Heart rate 114 /min Jessica Praisler-Wood PALAEONTOLOGIST.YARN SPINNER Work Phone: [facility] 11-21-2022 18:55-0400 Respiratory rate 16 /min Jessica Praisler-Wood PALAEONTOLOGIST.YARN SPINNER Work Phone: [facility] 11-21-2022 18:55-0400 SaO2% (BldA) [Mass fraction] 100 % Jessica Praisler-Wood PALAEONTOLOGIST.YARN SPINNER Work Phone: [facility] 11-21-2022 18:55-0400 Systolic blood pressure 134 mm[Hg] Jessica Praisler-Wood PALAEONTOLOGIST.YARN SPINNER Work Phone: [facility] 11-25-2021 14:57-0400 Body weight 60.06 kg Yamile Garces PALAEONTOLOGIST.YARN SPINNER Work Phone: [facility] 11-25-2021 14:57-0400 Diastolic blood pressure 60 mm[Hg] Yamile Garces PALAEONTOLOGIST.YARN SPINNER Work Phone: [facility] 11-25-2021 14:57-0400 Systolic blood pressure 102 mm[Hg] Yamile Garces PALAEONTOLOGIST.YARN SPINNER Work Phone: [facility] 10-04-2021 03:30-0400 Diastolic blood pressure 68 mm[Hg] KEREN LOPEZ MD [facility] 10-04-2021 03:30-0400 Heart rate 75 /min KEREN LOPEZ MD [facility] 10-04-2021 03:30-0400 Mean blood pressure 85 mm[Hg] KEREN LOPEZ MD [facility] 10-04-2021 03:30-0400 Respiratory rate 16 /min KEREN LOPEZ MD [facility] 10-04-2021 03:30-0400 Systolic blood pressure 120 mm[Hg] KEREN LOPEZ MD [facility] 10-04-2021 01:35-0400 Body height 165.1 cm KEREN LOPEZ MD [facility] 10-04-2021 01:35-0400 Body temperature 97.88 [degF] KEREN LOPEZ MD [facility] 10-04-2021 01:35-0400 Body weight 58.6 kg KEREN LOPEZ MD [facility] 10-04-2021 01:35-0400 Diastolic blood pressure 65 mm[Hg] KEREN LOPEZ MD [facility] 10-04-2021 01:35-0400 Heart rate 89 /min KEREN LOPEZ MD [facility] 10-04-2021 01:35-0400 Respiratory rate 16 /min KEREN LOPEZ MD [facility] 10-04-2021 01:35-0400 Systolic blood pressure 113 mm[Hg] KEREN LOPEZ MD [facility] 10-02-2021 19:45-0400 Diastolic blood pressure 76 mm[Hg] ASUNCION WHEELER MD [facility] 10-02-2021 19:45-0400 Heart rate 76 /min ASUNCION WHEELER MD [facility] 10-02-2021 19:45-0400 Reason For Taking VItal Signs ASUNCION WHEELER MD [facility] 10-02-2021 19:45-0400 Respiratory rate 18 /min ASUNCION WHEELER MD [facility] 10-02-2021 19:45-0400 Systolic blood pressure 121 mm[Hg] ASUNCION WHEELER MD [facility] 10-02-2021 19:00-0400 Diastolic blood pressure 84 mm[Hg] ASUNCION WHEELER MD [facility] 10-02-2021 19:00-0400 Heart rate 100 /min ASUNCION WHEELER MD [facility] 10-02-2021 19:00-0400 Respiratory rate 20 /min ASUNCION WHEELER MD [facility] 10-02-2021 19:00-0400 Systolic blood pressure 130 mm[Hg] ASUNCION WHEELER MD [facility] 10-02-2021 16:07-0400 Body height 165 cm ASUNCION WHEELER MD [facility] 10-02-2021 16:07-0400 Body temperature 99.14 [degF] ASUNCION WHEELER MD [facility] 10-02-2021 16:07-0400 Body weight 58.5 kg ASUNCION WHEELER MD [facility] 10-02-2021 16:07-0400 Diastolic blood pressure 74 mm[Hg] ASUNCION WHEELER MD [facility] 10-02-2021 16:07-0400 Heart rate 85 /min ASUNCION WHEELER MD [facility] 10-02-2021 16:07-0400 Respiratory rate 16 /min ASUNCION WHEELER MD [facility] 10-02-2021 16:07-0400 Systolic blood pressure 114 mm[Hg] ASUNCION WHEELER MD [facility] 05-05-2021 15:38-0500 Body height 165.1 cm Referring [...] Body weight 55.79 kg Referring Provider Unknown [facility] Eliseo Shaffer Work Phone: 05-05-2021 15:38-0500 Diastolic blood pressure 85 mm[Hg] Referring Provider Unknown [facility] Eliseo Shaffer Work Phone: 05-05-2021 15:38-0500 Heart rate 90 /min Referring Provider Unknown [facility] Eliseo Shaffer Work Phone: 05-05-2021 15:38-0500 Respiratory rate 16 /min Referring Provider Unknown [facility] Eliseo Shaffer Work Phone: 05-05-2021 15:38-0500 SaO2% (BldA) [Mass fraction] 98 % Referring Provider Unknown [facility] Eliseo Shaffer Work Phone: 05-05-2021 15:38-0500 Systolic blood pressure 137 mm[Hg] Referring Provider Unknown [facility] Eliseo Shaffer Work Phone: 05-05-2021 15:38-0500 60 1 Referring Provider Unknown [facility] Eliseo Shaffer Work Phone: Encounters Encounter Date Encounter Type Care Provider Facility Start: 02-04-2023 End: 02-04-2023 ambulatory [facility] Facility:[facility] Start: 02-04-2023 End: 02-04-2023 Patient encounter procedure Mary Bishop APRN.CNP Work Phone: [facility] Procedures Date Procedure Procedure Detail Performing Clinician None (qualifier value) BLANCO WHEELER MD Plan of Treatment Date Care Activity Detail Author Start: 02-23-2023 Influenza vaccination [facility] Start: 2022 PAP TESTING PAP TESTING [facility] Start: 06-25-2022 DEPRESSION ASSESSMENT DEPRESSION ASSESSMENT [facility] Start: 02-23-2022 Influenza vaccination INFLUENZA (Season Ended) [facility] Start: 06-09-2021 FUV, Provider: Leia Prieto, Status: Pen, Time: 3:00 PM FUV, Provider: Leia Prieto, Status: Pen, Time: 3:00 PM [facility] Eliseo [facility] Work Phone: Start: 2020 Urine microalbumin profile DTAP,TDAP,TD (1 - Tdap) [facility] Start: 2019 CHLAMYDIA SCREENING (18-24) CHLAMYDIA SCREENING (18-24) [facility] Start: 2019 GC (GONORRHEA) SCREENING (18-24) GC (GONORRHEA) SCREENING (18-24) [facility] Start: 2019 HEPATITIS C SCREENING HEPATITIS C SCREENING [facility] Start: 2019 HIV SCREENING HIV SCREENING [facility] Start: 2017 MENINGOCOCCAL B: Consider based on risk (1 of 2 - Patient Seeks Protection) MENINGOCOCCAL B: Consider based on risk (1 of 2 - Patient Seeks Protection) [facility] Start: 2015 PEDS TO ADULT TRANSITION ANNUAL ASSESSMENT PEDS TO ADULT TRANSITION ANNUAL ASSESSMENT [facility] Start: 2013 Adult depression screening assessment DEPRESSION SCREENING [facility] Start: 2013 PEDS TO ADULT TRANSITION INITIAL DISCUSSION PEDS TO ADULT TRANSITION INITIAL DISCUSSION [facility] Start: 2012 HPV VACCINE (1 - 2-dose series) HPV VACCINE (1 - 2-dose series) [facility] Start: 2011 MENINGOCOCCAL B: Consider based on risk (1 of 2 - Risk Bexsero 2-dose series) MENINGOCOCCAL B: Consider based on risk (1 of 2 - Risk Bexsero 2-dose series) [facility] Start: 2010 HPV VACCINE (1 - 2-dose series) HPV VACCINE (1 - 2-dose series) [facility] Start: 2006 COVID-19 VACCINE (#1) COVID-19 VACCINE (#1) [facility] Start: 02-02-2002 COVID-19 VACCINE (#1) COVID-19 VACCINE (#1) [facility] Start: 2001 HEPATITIS B (1 of 3 - 3-dose series) HEPATITIS B (1 of 3 - 3-dose series) [facility] Microscopic observat ion [Identifier] in Vaginal fluid by Gram stain BACT/TONEY VAG GRAM STAIN Microbiology Routine Vaginal irritation 11/25/2021 3:[address] [facility] Work Phone: Payers Date Payer Category Payer Unknown 2020 Unknown [employer] P[employer] [id number] 2020-Present [phone] [address] [place] [address] PPO [id number] 2020 Unknown [id number] 2001 Unknown [id number] 2001 Unknown [id number] Unknown [id number] Social History Date Type Detail Facility Start: 10-02-2021 End: 11-21-2022 Tobacco smoking status Never smoked tobacco (finding) [facility] Start: 2001 Sex Assigned At Female A [facility] Start: 06-12-2019 End: 11-21-2022 Tobacco use and exposure Smokeless tobacco non-user [facility] Start: 11-25-2021 End: 02-04-2023 Alcohol intake Lifetime non-drinker (finding) [facility] Start: 11-25-2021 History SDOH Alcohol Frequency 1 [facility] Start: 11-14-2021 End: 11-24-2021 Exposure to SARS-CoV-2 (event) Not sure [facility] Start: 07-23-2022 End: 02-04-2023 History of Social function [facility] Start: 07-23-2022 End: 02-04-2023 Tobacco use panel [facility] National Score (1-10 0), lower number is lower risk 63 [facility] Start: 02-03-2021 Gender identity Identifies as female gender (finding) [facility] Start: 02-03-2021 Sexual orientation Heterosexual (fin ibeth) [facility] Functional Status Date Assessment Result Facility 10-04-2021 Functional Status [facility] [place] 10-02-2021 Functional Status [facility] [place] 10-02-2021 Functional Status [facility] [place] Mental Status Date Assessment Result Facility 10-04-[facility] [place] 10-04-[address] [facility] 10-02-2021 [facility] [place] [facility]-02-[address] [facility] [address] [facility] Clinical Notes 01-02-2021 to 02-04-2023 Mary Bishop APRN.STEVEN - 02/04/2023 11:05 AM Timmy Gonzales APRN.YARN SPINNER - 11/21/2022 7:11 PM EDTPatient Vera Garces APRN.YARN SPINNER - 11/25/2021 2:54 PM EDTLaboratory Note Date & Type Note Facility 02-04-2023 Note HNO ID: [id number] Author: Mary Bishop APRN.YARN SPINNER Service: ? Author Type: Nurse Practitioner Type: Progress Notes Filed: 02/04/2023 11:16 AM Note Text: Subjective The history is provided by the patient. No hourly sign language interpreter was used. PAOLA Rosen is a 22 [...] have confirmed and edited as necessary, the [facility] Review of Systems Constitutional: Negative for chills [...] ordered Massage, warm compresses Follow up with PCP/MEDIA PROFESSIONAL prn Diagnosis and treatment plan were discussed and questions were answered to the patient's satisfaction. Pt acknowledged understanding of concepts and follow up plan. Specific signs and symptoms that would indicate the need for higher level of care were discussed in detail warranting prompt ER evaluation. Mary Bishop APRN.[facility] 02-04-2023 History of Present illness Narrative Images from the original note were not included. Subjective The history is provided by the patient. No hourly sign language interpreter was used. HPI Rafael Rosen is a [...] have confirmed and edited as necessary, the [facility] Review of Systems Constitutional: Negative for chills [...] ordered Massage, warm compresses Follow up with PCP/MEDIA PROFESSIONAL prn Diagnosis and treatment plan were discussed and questions were answered to the patient's satisfaction. Pt acknowledged understanding of concepts and follow up plan. Specific signs and symptoms that would indicate the need for higher level of care were discussed in detail warranting prompt ER evaluation. Mary Bishop APRN.YARN SPINNER documented in this encounter [facility] 11-21-2022 Note HNO ID: [id number] Author: Jessica Gonzales APRN.STEVEN Service: ? Author [...] She is nursing a 6 week old . Review of Systems Constitutional: Positive for chills. [...] Discussed expected course of illness Jessica Gonzales APRN.YARN SPINNER [facility] 11-21-2022 History of Present illness Narrative Images [...] She is nursing a 6 week old . Review of Systems Constitutional: Positive for chills. [...] Jessica Gonzales APRN.CNP documented in this encounter [facility] 11-21-2022 Instructions Jessica Gonzales APRN.CNP - [...] Jessica Gonzales APRN.CNP documented in this encounter [facility] 11-25-2021 History of Present illness Narrative [...] OB History No obstetric history on file. 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 documented in this encounter [facility] 10-04-2021 Hospital Discharge instructions Patient Education [...] (abdomen) that gets worse Weakness or dizziness [phone] [employer] [address] [place] [address]. All rights reserved. This information is not intended as a substitute for professional medical care. Always follow your healthcare professional's instructions. Follow Up Care 10/04/2021 01:24:16 With:CEM CALHOUN MD Address: When:2-4 days [facility] 10-03-2021 Evaluation + Plan note Future Scheduled TestshCG, quantitative () 10/03/21 [facility] 10-02-2021 Hospital Discharge instructions Patient Education 10/02/2021 [...] or as directed by your healthcare provider [phone] [employer] [address] [place] [address]. All rights reserved. This information is not [...] container and bring it to your provider. [phone] [employer] [address] [place] [address]. All rights reserved. This information is not [...] vein. It is given by a health career based intervention coordinator in a hospital or clinic setting. Talk to your commercial reporter regarding the use of this medicine in children. This medicine is not approved for use in children. What side effects may I notice from receiving this medicine? Side effects that you should report to your doctor or health career based intervention coordinator as soon as possible: allergic reactions like skin rash, itching or hives, swelling of the face, lips, or tongue breathing problems chest pain or tightness yellowing of the eyes or skin Side effects that usually do not require medical attention (report to your doctor or health career based intervention coordinator if they continue or are bothersome): fever pain and tenderness at site where injected What may interact with this medicine? live virus vaccines, like measles, mumps, or rubella What if I miss a dose? It is important not to miss your dose. Call your doctor or health career based intervention coordinator if you are unable to keep an [...] get live virus vaccines tell your health career based intervention coordinator if you have received this medicine within [...] provider will explain the details to you. [phone] [employer] [address] [place] [address]. All rights reserved. This information is not intended as a substitute for professional medical care. Always follow your healthcare professional's instructions. Follow Up Care 10/02/2021 16:03:54 With:CEM CALHOUN Address: [address] [place] [address] [facility] [place] [address]- [phone] Business (1) When:2-4 days Comments:Follow-up as scheduledReturn to ED if symptoms worsenIncrease fluids. Pelvic rest [facility] 01-06-2021 History of Present illness Narrative 20-year-old patient who is self-referred for a history of rectal bleeding. She is accompanied by her [id number] for the visit. She has noticed some [...] Better: cannot identify.Makes Worse: cannot identify.Associated Symptoms: [id number] ll 6 [facility] Work Phone: 01-02-2021 History of Present illness Narrative 20-year-old patient who is self-referred for a history of rectal bleeding. She is accompanied by her wqhbll-[id number] for the visit. She has noticed some [...] note No data available for this section [facility] documented [facility] this encounter [facility] Diagnosis Mastitis, right, acute- Primary Inflammatory disease of breast documented in this encounter [facility] Diagnosis Mastitis, right, acute- Primary Inflammatory disease of breast documented in this encounter [facility] No data available for this section [facility] Chief Complaint constipation x 12 months with [...] DATE CREATED AUTHOR AUTHOR'S ORGANIZ ATION 10/05/2021 [facility] ([place]) DATE CREATED AUTHOR AUTHOR'S ORGANIZ ATION 03/27/2022 [facility] DATE CREATED AUTHOR AUTHOR'S ORGANIZ ATION 05/17/2022 [facility] DATE CREATED AUTHOR AUTHOR'S ORGANIZ ATION 08/01/2022 [facility] DATE CREATED AUTHOR AUTHOR'S ORGANIZ ATION 02/04/2023 [facility] Source Comments (unrecognize d section and content) In the event this informatio n is protected by the Federal Confidentiality of Alcohol and Drug Abuse Patient Records regulations: The Federal rules restrict any use of the information to criminally investigate or prosecute any alcohol or drug abuse patient.[facility] the event this information is protected by the Federal Confidentiality of Alcohol and Drug Abuse Patient Records regulations: The Federal rules restrict any use of the information to criminally investigate or prosecute any alcohol or drug abuse patient.[facility] Hospital[facility] the event this information is protected by the Federal Confidentiality of Alcohol and Drug Abuse Patient Records regulations: The Federal rules restrict any use of the information to criminally investigate or prosecute any alcohol or drug abuse patient.[facility] Reason for Visit (unrecogniz ed section and content) Specialty Diagnoses / Procedures Referred By Contac t Referred To Contact Gynecology / 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 BUILDER Diagnoses Superficial dyspareunia urethra concern Procedures OFFICE/OUTPATIENT ESTABLISHED HIGH MDM 40-54 MIN EST WHI PATIENT Self Yamile Garces, PALAEONTOLOGIST.YARN SPINNER [address] [place] [address] Referral ID Status Reason Start Date Expiration Date Visits Re quested Visits Authorized [id number] Closed 11/24/2021 06/24/2022 1 1 Reason Comments Breast Problem pain in right breast x last night Specialty Diagnoses / Procedures Referred By Spenser t Referred To Contact [facility] Diagnoses Possible mastitis, having pain x1 day Procedures NEW SAME DAY [facility] [address] [place] [address] Referral ID Status Reason Start Date Expiration Date V isits Requested Visits Authorized [id number] Outside PCP 11/21/2022 01/20/2023 1 1 Reason Comments Breast Problem R side possible mast itis x2 days Care Teams (unrecognized sec tion and content) Golf Range Attendant Relationship Specialty Start Date End Date Aamir Azevedo [address] [place] [address] PCP - General Pediatrics 06/12/19 FOR RECORDS [...] BE BASED ON THE PRIMARY CLINICAL RECORDS. [facility] [employer] [facility]. provides no warranty or guarantee of the accuracy or completeness of information in this document.
== END | disposition home or self-care (01) ==
LOC: PAVLAB 12:42
PROVIDERS: PCP Pediatrics; Referring Provider Registered Nurse; Visit Provider Registered Nurse
DX: O09.299 Supervision of pregnancy with other poor reproductive or obstetric history, unspecified trimester (principal); Z3A.00 Weeks of gestation of pregnancy not specified
CPT/HCPCS: 36415; 84144; 84702

== ENCOUNTER → 2023-09-10 | Outpatient (CLI) | payer OTHER, SELFPAY ==
[2023-09-10 16:02] LABS: Progesterone Level 10.76 ng/mL (See Comment)
== END | disposition home or self-care (01) ==
LOC: PAVLAB 14:57
PROVIDERS: PCP Pediatrics; Referring Provider Registered Nurse; Visit Provider Registered Nurse
DX: O09.299 Supervision of pregnancy with other poor reproductive or obstetric history, unspecified trimester (principal); Z3A.00 Weeks of gestation of pregnancy not specified
CPT/HCPCS: 36415; 84144

== ENCOUNTER → 2023-09-17 | Outpatient (CLI) | payer OTHER, SELFPAY ==
[2023-09-17 13:43] LABS: Progesterone Level 17.53 ng/mL (See Comment)
[2023-09-17 14:22] LABS: hCG Titer Quant., Serum 33739 mIU/mL (1-3)
== END | disposition home or self-care (01) ==
LOC: PAVLAB 12:52
PROVIDERS: PCP Pediatrics; Referring Provider Registered Nurse; Visit Provider Registered Nurse
DX: O09.299 Supervision of pregnancy with other poor reproductive or obstetric history, unspecified trimester (principal); Z3A.00 Weeks of gestation of pregnancy not specified
CPT/HCPCS: 36415; 84144; 84702

== ENCOUNTER → 2023-10-01 | Outpatient (CLI) | payer OTHER, SELFPAY ==
[2023-10-01 11:13] LABS: Progesterone Level 30.21 ng/mL (See Comment)
== END | disposition home or self-care (01) ==
PROVIDERS: PCP Pediatrics; Referring Provider Registered Nurse; Visit Provider Registered Nurse
DX: O09.299 Supervision of pregnancy with other poor reproductive or obstetric history, unspecified trimester (principal); Z3A.00 Weeks of gestation of pregnancy not specified
CPT/HCPCS: 36415; 84144